=== PATIENT | male | born 2000 | race African-American/Black ===

== ENCOUNTER 2021-10-12 14:05 | Emergency (ER) | payer MEDICAID ==
[~2021-10-12] VITALS: Ht 188 cm; Wt 100.0 kg
[~2021-10-12 14:05] MED LIST: NO MEDS
[2021-10-12 14:11] VITALS: BP 141/55
[2021-10-12] MEDS ORDERED: IBUP-2029 MT (19:29)
== END 2021-10-12 19:47 | disposition home or self-care (01) ==
LOC: ER 14:05
DX: M94.0 Chondrocostal junction syndrome [Tietze] (principal)
CPT/HCPCS: 71045; 93005; 99283

== ENCOUNTER 2022-12-07 19:55 | Emergency (ER) | payer MEDICAID, OTHER ==
[~2022-12-07] VITALS: Ht 185.4 cm; Wt 103.1 kg
[~2022-12-07 19:55] MED LIST changes: +IBUP-2029 MT
[2022-12-07 20:29] VITALS: BP 142/68
[2022-12-07] MEDS ORDERED: PENI500T MT (21:33)
[2022-12-07] MEDS ORDERED: IBUP-2029 MT (21:33)
[2022-12-07] MEDS ORDERED: DEXAMETHASONE 4MG TABLET PO SCH (21:45)
== END 2022-12-07 21:49 | disposition home or self-care (01) ==
LOC: ER 19:55
DX: J02.9 Acute pharyngitis, unspecified (principal); Z68.30 Body mass index [BMI] 30.0-30.9, adult; Z90.49 Acquired absence of other specified parts of digestive tract
CPT/HCPCS: 87070; 87430; 99283; J8540